=== PATIENT | female | born 1995 | race Caucasian/White ===

== ENCOUNTER 2019-06-20 07:43 | Inpatient (IN) ==
[2019-06-20] MEDS ORDERED: DINOPROSTONE 10 MG INSERT PV ONE (08:36)
[2019-06-20] MEDS ORDERED: OXYTOCIN 30 UNITS/500 ML BAG IV PRN (08:36)
--- NOTE | 2019-06-20 08:47 | History & Physical Report ---
Date of Service June 20, 2019 Assessment & Plan (1) Post term over 40 weeks: 24 yo at 40.2 wks IOL VSS Afebrile No medical problems Smoker GBS negative FHR reassuring Cervix unfavorable Plan to admit, monitor, labs, Cervidil for ripening All questions were answered History of Present Illness Chief Complaint: Induction of labor Primary Care Provider: NO PCP Patient is a 24 yo at 40.2 wks who is here for scheduled IOL No complaints No ctxs/ LOF/VB +FM's Her has been uncomplicated except Smoker, has been cutting down, now uses e-cigarette 1-2 x /day GBS negative No medical problems Allergies Allergy/AdvReac Type Severity Reaction Status Date / Time No Known Allergies Allergy Unverified 06/20/19 08:21 Home Medications Home Medications Medication Instructions Recorded Confirmed Type PNV,calcium 87-khvu-noaxf acid 1 tab PO DAILY 06/20/19 06/20/19 History [ Plus (calcium carb)] Patient History Family History Grandmother (Maternal) Family history of diabetes mellitus Cancer Hypertension Grandmother (Paternal) Family history of diabetes mellitus Hypothyroidism Cancer Grandfather (Maternal) Stroke Social History Preferred Language: Latvian Communication Ability: 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 Beliefs That Will Affect Care: None marital status: Single Current Living Situation: Parent Other Information That Helps Us Care for You: No Feels Safe at Home: Yes Safety Concerns: Feels Safe At This Time Smoking Status: Current every day smoker Tobacco Type: e-cigarettes ; Do You Dip or Chew Tobacco: No ; Second Hand Exposure: No ; Tobacco Cessation Education Requested by Patient: No Hx Alcohol Use: Yes (when not ) Alcohol type: hard liquor Hx Substance Use: No SOAKER History No h/o STD's No HSV Review of Systems All systems reviewed & are unremarkable except as noted in HPI & below Physical Exam Constitutional: WD/WN, vitals as above well developed and well nourished Comfortable Gastrointestinal (Abdomen): Abd: soft, NT, Gravid Genitourinary: normal external appearance VE: 1-2 cm/ 30%/ -3, posterior, vertex Results & Data Vital Signs (Past 12 Hours) Vital Signs Temp Pulse Resp BP 06/20/19 08:37 36.9 C 18 06/20/19 08:31 76 131/77 Monitoring External Monitor Reactive 120's good accels, no decels, moderate variability Tocodynamometer ctxs q 10 min
[2019-06-20 08:59] LABS: Hemoglobin 10.5 g/dL (12.0-16.0); Mean Corpuscular Volume 91.5 fL (80-100); Platelet Count 194 K/uL (130-400); RDW Coefficient of Variation 12.7 % (11.5-14.5); RDW Standard Deviation 42.2 fL (36.4-46.3); Red Blood Count 3.28 M/uL (4.2-5.4); White Blood Count 8.98 K/uL (4.8-10.8)
[2019-06-20] MEDS: LACTATED RINGER'S 1,000 ML IV PRN ×2 (12:35→21:15)
--- NOTE | 2019-06-20 16:33 | Obstetrical Progress Note ---
Date of Service June 20, 2019 Subjective Patient is reevaluated She feels ctxs are more painful Not sure how often No LOF/VB +FM VE; 3-4 cm/ 50%/ -3, posterior FHR categ I [place] mild to moderate ctxs q 4-6 min Discussed active vs latent labor, observation longer vs d/c home She lives about 1 hour away and GBS+ Decided to stay longer and recheck All questions were answered Results & Data Vital Signs (Past 12 Hours) Vital Signs Temp Pulse Resp BP 06/20/19 14:40 37.0 C 70 18 135/81 06/20/19 13:02 36.7 C 64 20 134/74 06/20/19 11:11 37.0 C 71 18 128/77 06/20/19 08:37 36.9 C 18 06/20/19 08:31 76 131/77
[2019-06-20] MEDS ORDERED: BUTORPHANOL TARTRATE 1 MG/ML VIAL IV PRN (16:54)
[2019-06-20] MEDS ORDERED: ONDANSETRON INJ 2 MG/ML 2 ML VIAL IV PRN (17:07)
--- NOTE | 2019-06-20 17:07 | Obstetrical Progress Note ---
Date of Service June 20, 2019 Subjective Patient is reevaluated She feels ctxs very often and painful Pain is 9/10 but she can talk and walk with them No LOF/VB +FM FHR categ I [place] ctxs q 1-2 min, hyperstimulated VE: 2/ 50%/ -3, posterior, Cervidil was taken out Plan to monitor, diet and reevaluate Results & Data Vital Signs (Past 12 Hours) Vital Signs Temp Pulse Resp BP 06/20/19 14:40 37.0 C 70 18 135/81 06/20/19 13:02 36.7 C 64 20 134/74 06/20/19 11:11 37.0 C 71 18 128/77 06/20/19 08:37 36.9 C 18 06/20/19 08:31 76 131/77
--- NOTE | 2019-06-20 22:56 | Obstetrical Progress Note ---
Date of Service June 20, 2019 Subjective Patient is reevaluated She feels ctxs not often as before and not painful anymore Pain is mild on and of not with all ctxs No LOF/VB +FM FHR categ I [place] ctxs q 2-3 min, seems with good amplitude on too, feels moderate VE: 2-3/ 50%/ -, softer than before Plan to monitor, diet and await until ctxs will space out Results & Data Vital Signs (Past 12 Hours) Vital Signs Temp Pulse Resp BP 06/20/19 19:18 75 131/74 06/20/19 19:17 37.1 C 16 06/20/19 14:40 37.0 C 70 18 135/81 06/20/19 13:02 36.7 C 64 20 134/74 06/20/19 11:11 37.0 C 71 18 128/77
[2019-06-21] MEDS: LACTATED RINGER'S 1,000 ML IV PRN ×4 (01:20→22:30)
[2019-06-21] MEDS: miSOPROStol 50 MCG TAB PO SCH ×4 (05:10→17:58)
--- NOTE | 2019-06-21 08:31 | Labor Progress Brief Note ---
Date of Service June 21, 2019 Met pt and Mother Reviewed care Doing well FHR; CAT1 Results & Data Vital Signs (Past 12 Hours) Vital Signs Temp Pulse Resp BP 06/21/19 07:56 65 135/83 06/21/19 05:08 36.8 C 66 18 122/69 06/21/19 01:13 66 123/73
[2019-06-21] MEDS ORDERED: OXYTOCIN 30 UNITS/500 ML BAG IV PRN (14:17)
--- NOTE | 2019-06-21 15:43 | Labor Progress Brief Note ---
Date of Service June 21, 2019 Pt doing well FHR; CAT1 ctx 4-5mins. mild intensity VE; 50/-2 Will start Pitocin augmentation Results & Data Vital Signs (Past 12 Hours) Vital Signs Temp Pulse Resp BP 06/21/19 13:37 36.7 C 54 L 18 137/78 06/21/19 11:16 36.8 C 20 06/21/19 11:15 72 127/77 06/21/19 07:56 36.8 C 65 20 135/83 06/21/19 05:08 36.8 C 66 18 122/69
[2019-06-21] MEDS ORDERED: BUPIVACAINE 0.25% 30 ML VIAL ONE (20:16)
[2019-06-21] MEDS ORDERED: fentaNYL 2MCG/ML ROPIV 1.25MG/ML 100 ML BAG EPI ONE (20:17)
[2019-06-21] MEDS ORDERED: ePHEDrine sulfate 50 MG/ML AMP ONE (20:17)
[2019-06-21] MEDS ORDERED: fentaNYL citrate 100 MCG/2 ML VIAL ONE (20:17)
--- NOTE | 2019-06-21 20:40 | Anesthesiology Consultation ---
Date of Service June 21, 2019 Assessment & Plan Chart Review Chart Review: Acceptable Risk for Surgery, Patient NOT seen in Pre Admission Testing and Acceptable Risk for Labor Epidural Consults Requested none ASA ASA2 Proposed Anesthesia Anesthesia Type: General and Labor Epidural Risk / Benefits Reviewed With: PT / POA / Parent / Guardian, Accepts Plan and Informed Consent Obtained History Height/Weight Height: 5 ft 4 in Weight: 83.915 kg Allergies Allergy/AdvReac Type Severity Reaction Status Date / Time No Known Allergies Allergy Unverified 06/20/19 08:21 Medications Home Medications Medication Instructions Recorded Confirmed Last Taken PNV,calcium 86-bzcg-xzkdj acid 1 tab PO DAILY 06/20/19 06/20/19 06/20/19 06:15 [ Plus (calcium carb)] Active Medications Generic Name Dose Route Start Last Admin Trade Name Freq PRN Reason Stop Dose Admin Butorphanol Tartrate 1 mg 06/20/19 16:54 06/21/19 14:21 Stadol IV 07/20/19 16:53 1 mg Q3HWA PRN Administration Pain Diphenhydramine HCl 25 mg 06/20/19 22:56 06/21/19 01:15 Benadryl Capsule PO 07/20/19 22:55 25 mg HS PRN Administration Sleep Lactated Ringer's 1,000 mls @ 150 mls/hr 06/20/19 08:36 06/21/19 20:30 Lr IV 06/22/19 08:35 999 mls/hr .Q6H40M PRN Infusion L&D Protocol Protocol Oxytocin 30 units in 500 mls @ 8 mls/hr 06/21/19 14:17 06/21/19 19:30 Pitocin IV 06/23/19 14:16 0.48 units/hr .Q24H PRN 8 mls/hr Labor Induction/Augmentation Titration Protocol 0.48 UNITS/HR NPO Date Last Intake of Fluids: 06/21/19 Time Last Intake of Fluids: 19:00 Date Last Intake of Solids: 06/20/19 Time Last Intake of Solids: 23:30 Past Medical History Medical History Anemia Obese Tobacco abuse Exercise / Class Metabolic Activity II 4-5 Yardwork/Stairs/Walk up hill Past Family History Family History Grandmother (Maternal) Family history of diabetes mellitus Cancer Hypertension Grandmother (Paternal) Family history of diabetes mellitus Hypothyroidism Cancer Grandfather (Maternal) Stroke Past Anesthesia History No Hx of Anesthesia Complications and No Family Hx of Anesthesia Complications History of PONV No Hx of PONV and No Hx of Motion Sickness Social History Smoking Status: Current every day smoker tobacco type: e-cigarettes Do You Dip or Chew Tobacco: No Hx Alcohol Use: Yes (when not ) Alcohol type: hard liquor alcohol intake frequency: holidays/special occasions only Hx Substance Use: No substance use type: does not use Physical Exam Vital Signs Last Vital Signs Temp 37.2 C 06/21/19 19:21 Pulse 61 06/21/19 20:33 Resp 18 06/21/19 19:21 BP 130/75 06/21/19 20:26 Pulse Ox 94 06/21/19 20:33 Constitutional + obese ENMT Mouth: no dentition abnormality Thyromental Distance: < 3.5 Finger Breadths Mallampati Class: II Neck normal visual inspection and trachea midline; neck extension not limited Respiratory normal respiratory effort Auscultation: lungs clear to auscultation bilaterally Cardiovascular Rate/Rhythm: regular rate and regular rhythm Heart Sounds: no murmur Musculoskeletal Spine: lumbar spine normal to inspection; normal cervical ROM Neurologic moves all extremities Motor/Sensory: no sensory deficit Psychiatric Orientation: alert and oriented x 3 Testing Laboratory Results 06/20/19 08:44
[2019-06-21] MEDS ORDERED: NALOXONE HCL 0.4 MG/1 ML VIAL/CARP IV PRN (21:09)
[2019-06-21] MEDS ORDERED: DiphenhydrAMINE HCL 50 MG/ML VIAL IV PRN (21:09)
[2019-06-21] MEDS ORDERED: ePHEDrine sulfate 50 MG/ML AMP IV PRN (21:09)
[2019-06-21] MEDS ORDERED: NALOXONE HCL 1 MG in SODIUM CHLORIDE 0.9% 1000ML 1,000 ML IV PRN (21:09)
[2019-06-21] MEDS ORDERED: NALBUPHINE HCL INJ 10 MG/ML AMP IV PRN (21:09)
[2019-06-21] MEDS ORDERED: ONDANSETRON INJ 2 MG/ML 2 ML VIAL IV PRN (21:09)
[2019-06-21] MEDS ORDERED: fentaNYL 2MCG/ML ROPIV 1.25MG/ML 100 ML BAG EPI PRN (21:09)
[2019-06-21] MEDS ORDERED: PROMETHAZINE HCL 25 MG in SODIUM CHLORIDE 0.9% 50 ML IV PRN (21:09)
--- NOTE | 2019-06-21 21:37 | Labor Progress Brief Note ---
Date of Service June 21, 2019 Pt doing well Epidural analgesia in place FHR; CAT1 Pit; 8MU AROM-clear VE; 3/80/-1 Results & Data Vital Signs (Past 12 Hours) Vital Signs Temp Pulse Resp BP Pulse Ox 06/21/19 21:30 59 L 94 06/21/19 21:25 66 18 93 06/21/19 21:24 52 L 94 06/21/19 21:20 52 L 18 93 06/21/19 21:19 50 L 94 06/21/19 21:15 65 18 95 06/21/19 21:14 62 94 06/21/19 21:10 77 18 95 06/21/19 21:09 57 L 121/60 06/21/19 21:07 37.0 C 54 L 18 121/63 06/21/19 21:05 53 L 119/64 94 06/21/19 21:04 55 L 94 06/21/19 21:02 50 L 117/82 06/21/19 21:00 54 L 123/69 94 06/21/19 20:59 59 L 94 06/21/19 20:55 58 L 94 06/21/19 20:54 18 06/21/19 20:53 62 94 06/21/19 20:50 59 L 94 06/21/19 20:47 71 94 06/21/19 20:45 60 96 06/21/19 20:38 63 94 06/21/19 20:33 61 94 06/21/19 20:28 56 L 93 06/21/19 20:26 62 130/75 06/21/19 19:21 37.2 C 18 06/21/19 19:10 56 L 128/81 06/21/19 17:57 61 137/87 06/21/19 16:32 59 L 122/71 06/21/19 15:50 56 L 125/77 06/21/19 13:37 36.7 C 54 L 18 137/78 06/21/19 11:16 36.8 C 20 06/21/19 11:15 72 127/77
[2019-06-22] MEDS ORDERED: METHYLERGONOVINE MALEATE 0.2 MG/ML AMP ONE (02:24)
[2019-06-22] MEDS ORDERED: DIPHTHERIA/TETANUS/PERTUSSIS 0.5 ML SYR/VIAL IM ONE (02:55)
[2019-06-22] MEDS ORDERED: HYDROCORTISONE ACETATE 25 MG SUPP PR PRN (02:55)
[2019-06-22] MEDS ORDERED: OXYTOCIN 30 UNITS/500 ML BAG IV PRN (02:55)
[2019-06-22] MEDS ORDERED: ACETAMINOPHEN 325 MG TAB PO PRN (02:55)
[2019-06-22] MEDS ORDERED: miSOPROStol 200 MCG TAB PR ONE (02:55)
[2019-06-22] MEDS ORDERED: METHYLERGONOVINE MALEATE 0.2 MG/ML AMP IM ONE (02:55)
[2019-06-22] MEDS ORDERED: BISACODYL 10 MG SUPP PR PRN (02:55)
[2019-06-22] MEDS ORDERED: SUPERCREAM 0.870% 15 GM JAR EXT PRN (02:55)
[2019-06-22] MEDS ORDERED: BENZOCAINE 20% AER SPR 82.5 GM CAN EXT PRN (02:55)
[2019-06-22] MEDS: IBUPROFEN 600 MG TAB PO PRN ×2 (05:04→23:55)
[2019-06-22] MEDS: DOCUSATE SODIUM 100 MG CAP PO SCH ×2 (08:56→20:21)
[2019-06-22] MEDS: FERROUS SULFATE 325 MG TAB PO SCH (08:56)
[2019-06-22] MEDS: PRENATAL VITAMIN 1 TAB PO SCH (08:56)
--- NOTE | 2019-06-22 09:40 | Anesthesia Procedure Note ---
Date of Service June 22, 2019 Anesthesia Post Epidural Note Vital Signs Vital Signs: Temp Pulse Resp BP Pulse Ox 37.0 C 86 18 131/63 98 06/22/19 05:30 06/22/19 05:19 06/22/19 05:30 06/22/19 05:30 06/22/19 03:30 Pain Intensity Bilateral Perineal: Pain Intensity: 5 Notes Mental Status: alert / awake / arousable Nausea / Vomiting: adequately controlled Pain: adequately controlled Airway Patency, RR, SpO2: stable & adequate BP & HR: stable & adequate Hydration State: stable & adequate Neuraxial Anesthesia: was administered and sensory block resolved Anesthetic Complications: no major complications apparent and Pt Satisfied with anesthetic care Epidural: Removed without complications and With tip intact
[2019-06-23 06:13] LABS: Hematocrit (blood only) 23.7 % (37-47); Hemoglobin 8.2 g/dL (12.0-16.0); Mean Corpuscular Hgb Conc 34.6 g/dL (32-36); Mean Corpuscular Volume 92.9 fL (80-100); Mean Platelet Volume 10.2 fL (7.4-10.4); Platelet Count 153 K/uL (130-400); RDW Coefficient of Variation 13.1 % (11.5-14.5); RDW Standard Deviation 44.1 fL (36.4-46.3); Red Blood Count 2.55 M/uL (4.2-5.4); White Blood Count 9.55 K/uL (4.8-10.8)
--- NOTE | 2019-06-23 08:41 | Obstetrical Progress Note ---
Date of Service June 23, 2019 Physical Exam Constitutional: WD/WN, vitals as above comfortable abdomen soft non- tender Fundus firm No edema jenni Too's for d/c in AM Results & Data Vital Signs (Past 12 Hours) Vital Signs Temp Pulse Resp BP 06/23/19 04:20 36.5 C 65 18 126/81 06/23/19 00:00 36.6 C 65 18 138/87 Laboratory Results Laboratory Results - last 72 hr 06/20/19 06/23/19 08:44 05:59 WBC 8.98 9.55 RBC 3.28 L 2.55 L Hgb 10.5 L 8.2 L Hct 30.0 L 23.7 L MCV 91.5 92.9 MCH 32.0 32.2 MCHC 35.0 34.6 RDW Std Deviation 42.2 44.1 RDW Coeff of Andrew 12.7 13.1 Plt Count 194 153 MPV 11.0 H 10.2
[2019-06-23] MEDS: DOCUSATE SODIUM 100 MG CAP PO SCH ×2 (08:54→20:27)
[2019-06-23] MEDS: FERROUS SULFATE 325 MG TAB PO SCH (08:54)
[2019-06-23] MEDS: PRENATAL VITAMIN 1 TAB PO SCH (08:54)
[2019-06-23] MEDS ORDERED: BISACODYL 5 MG TABEC PO SCH (20:00)
[2019-06-23] MEDS: IBUPROFEN 600 MG TAB PO PRN (23:16)
--- NOTE | 2019-06-24 06:27 | Delivery Summary ---
DATE OF OPERATION: 06/22/2019 DELIVERY NOTE: The patient delivered a live male in left occiput anterior presentation. There was no nuchal cord. Infant was delivered and placed on mother's abdomen. Cord was clamped and cut after 1 minute. Cord blood was obtained. Placenta was spontaneously delivered. Inspection of the perineum showed a second-degree midline laceration with right labial tear. Lacerations are repaired in layers using 2-0 and 3-0 Vicryl. Rectal exam post repair showed good sphincter tone, no sutures are palpated in the rectum. Estimated blood loss is 150 mL. The patient's weight and Apgars are in the pediatric record. All instruments were removed from the vagina including sutures, needles, and retractors. Baby and mother are doing well in recovery. I attest to the content of the Intraoperative Record and any orders documented therein. Any exception s are noted below.
[2019-06-24 06:45] LABS: Hematocrit (blood only) 24.7 % (37-47); Hemoglobin 8.4 g/dL (12.0-16.0)
--- NOTE | 2019-06-24 08:47 | Obstetrical Progress Note ---
Date of Service June 24, 2019 Subjective Patient is seen and examined. She feels well, no complaints. Likes to be discharged Ambulating without dizziness Voiding without difficulty Tolerating regular diet with out N&V Bleeding is minimal No fever/ chills/ CP/ SOB/ N&V/ Leg pain Bottle feeding without problems Vital Signs Temp Pulse Resp BP Pulse Ox 06/24/19 07:19 36.6 C 58 L 16 128/80 99 06/23/19 23:10 36.6 C 72 20 133/79 98 06/23/19 19:12 36.7 C 72 18 136/81 06/23/19 15:35 36.6 C 67 18 124/75 Lab Results 06/20/19 06/23/19 06/24/19 Range/Units 08:44 05:59 06:32 WBC 8.98 9.55 (4.8-10.8) K/uL RBC 3.28 L 2.55 L (4.2-5.4) M/uL Hgb 10.5 L 8.2 L 8.4 L (12.0-16.0) g/dL Hct 30.0 L 23.7 L 24.7 L (37-47) % MCV 91.5 92.9 (80-100) fL MCH 32.0 32.2 (25-34) pg MCHC 35.0 34.6 (32-36) g/dL RDW Std Deviation 42.2 44.1 (36.4-46.3) fL RDW Coeff of Andrew 12.7 13.1 (11.5-14.5) % Plt Count 194 153 (130-400) K/uL MPV 11.0 H 10.2 (7.4-10.4) fL PE: General: Alert, orientedx3, NAD Abd: soft, NT, fundus firm, below Umbilicus Perineum intact, Lochia rubra minimal Ext; NT, no edema AP: 24 yo s/p , ppd# 2 VSS Afebrile doing well Continue routine care All questions were answered Discussed when to call D/C home , f/u in office Results & Data Vital Signs (Past 12 Hours) Vital Signs Temp Pulse Resp BP Pulse Ox 06/24/19 07:19 36.6 C 58 L 16 128/80 99 09/15/19 23:10 36.6 C 72 20 133/79 98
[2019-06-24] MEDS: FERROUS SULFATE 325 MG TAB PO SCH (08:59)
[2019-06-24] MEDS: DOCUSATE SODIUM 100 MG CAP PO SCH (08:59)
[2019-06-24] MEDS: PRENATAL VITAMIN 1 TAB PO SCH (08:59)
== END 2019-06-24 14:20 | disposition home or self-care (01) | DRG 807 ==
LOC: 4S1 07:43 → 4S2 06-22 06:09
DX: O99.334 Smoking (tobacco) complicating childbirth; Z37.0 Single live birth; O70.1 Second degree perineal laceration during delivery; O48.0 Post-term pregnancy; Z3A.40 40 weeks gestation of pregnancy; F17.210 Nicotine dependence, cigarettes, uncomplicated